=== PATIENT | male | born 1940 | race Asian ===

== ENCOUNTER 2019-04-04 00:18 | Inpatient (IN) | payer OTHER ==
[~2019-04-04] VITALS: Ht 170.2 cm; Wt 69.4 kg
[2019-04-04 00:57] VITALS: BP 120/87
[2019-04-04 01:27] LABS: ABSOLUTE NEUTROPHILS 13.5 thou/uL (1.4-8.2); BASOPHILS 0.2 % (0.0-2.0); EOSINOPHILS 0.4 % (0.0-3.0); HEMATOCRIT 42.9 % (42.0-52.0); HEMOGLOBIN 14.7 gm/dL (14.0-18.0); LYMPHOCYTES 7.3 % (24.0-44.0); MCH 29.8 pg (26.0-34.0); MCHC 34.2 g/dL (28.0-37.0); PLATELET COUNT 341 thou/uL (150-400); POLYS 84.1 % (36.0-66.0); RBC 4.93 mil/uL (4.50-6.00); RDW 15.1 % (10.5-14.5)
[2019-04-04 01:37] LABS: ANION GAP 6 mmol/L (7-16); BUN 10 mg/dL (7-18); CALCIUM 9.9 mg/dL (8.5-10.1); CHLORIDE 95 mmol/L (98-107); CO2 29 mmol/L (21-32); CREATININE 0.9 mg/dL (0.7-1.3); GLUCOSE 130 mg/dL (74-106); POTASSIUM 4.1 mmol/L (3.5-5.1); SODIUM 130 mmol/L (136-145)
[2019-04-04] MEDS ORDERED: AVAPRO75 MG (01:43)
[2019-04-04] MEDS ORDERED: NORVASC10 MG PO (01:43)
[2019-04-04] MEDS ORDERED: HYDROCHLOROTHIA25 M2 PO (01:43)
[2019-04-04 01:47] LABS: ALBUMIN 4.1 g/dL (3.4-5.0); LIPASE 147 U/L (73-393); SGOT 26 U/L (15-37); SGPT 29 U/L (30-65); TOTAL BILIRUBIN 0.5 mg/dL (<0.1-1.0); TOTAL PROTEIN 7.7 g/dL (6.4-8.2); TROPONIN-I <0.06 ng/mL (<0.06)
[2019-04-04 03:30] LABS: URINE BILIRUBIN NEGATIVE (Negative); URINE BLOOD NEGATIVE (Negative); URINE CLARITY CLEAR; URINE COLOR YELLOW; URINE GLUCOSE-RANDOM* NEGATIVE (Negative); URINE KETONES NEGATIVE (Negative); URINE LEUKOCYTES-REFLEX NEGATIVE (Negative); URINE NITRITE-REFLEX NEGATIVE (Negative); URINE PROTEIN (DIPSTICK) NEGATIVE (Negative); URINE UROBILINOGEN 0.2 E.U./dl (0.2-1.0)
[2019-04-04 04:52] VITALS: BP 145/93
[2019-04-04 04:58] VITALS: BP 145/93
[2019-04-04 05:37] VITALS: BP 141/81
--- NOTE | 2019-04-04 06:43 | NUR ---
Assumed care at 1845. Pt resting in bed. AOX4. VSS. On room air. NG tube on right price. Emptied 1100cc in the ED. Denies pain. No skin issues. He has a steady gait.IV R AC with NS @125. Pt refused SCDs. Pt states he feels better and he wants to leave the hospital. No identified needs at the moment. Call light within reach. Will continue to monitor.
[2019-04-04 07:55] VITALS: BP 117/74
--- NOTE | 2019-04-04 08:43 | EKG ---
[place] [address] [facility] [place] [address] ELECTROCARDIOGRAM REPORT Name: JASE ANDREA Room #: 451-P ADM IN M.R.#: [id number] ������������������ Admission: 04/04/19 ������������������ Attend Phys: Marcie Rivas Discharge: ������������������ Date of : 38 Report #: [id number] ����������������������������������������������������������������� [id number] THIS REPORT FOR: //name// [facility] ED Test Date: 2019-04-04 Test Time: 01:28:56 Pat Name: JASE ANDREA Department: Room: [facility] Gender: M Director [employer]: andrew : 1940 Requested By: Gilberto Harp Order Number: [id number] MD: John Modi Measurements Intervals [place] Rate: 106 P: -32 PA: 183 QRS: 70 QRSD: 101 T: 1 QT: 333 QTc: 443 Interpretive Statements Sinus tachycardia RSR' in V1 or V2, right VCD Nonspecific ST segment abnormality No previous ECG available for comparison Electronically Signed On 04-04-2019 8:43:29 CDT by John Modi [email or web address] ��������������������������������������������� <ELECTRONICALLY SIGNED> ���������������������������������������� By: John Modi MD, [facility] ��������������������������������������������� 04/04/19 [id number] [id number] John Modi MD, [facility] /EPI
[2019-04-04] MEDS ORDERED: PEPCID20 MG PO (12:56)
[2019-04-04] MEDS ORDERED: ONDANSETRON HCL4 M2 PO (12:56)
--- NOTE | 2019-04-04 13:41 | NUR ---
Assumed pt care this am, with patent NGT draining cloudy yellow fluid. Pt complained of nausea and a tinge of blood was noted in his NGT after ambulating to the toilet and back. Dr. Rivas was informed and he removed the NGT. Clear liquids is tolerated changed changed to full liquids, will observe tolerance.
--- NOTE | 2019-04-04 14:05 | NUR ---
PT ADMITTED RELATED TO Bowel Obstruction. CM REVIEWED CHART AND SPOKE WITH CARE TEAM. CM MET WITH PT AT BEDSIDE THIS DAY. PT IS A&O X4 BUT PT DOESN'T SPEAK GEORGIAN. CM ROLE INTRODUCED. PT'S SPOUSE AND DTR WERE AT BEDSIDE. PT'S DTR INDICATED THAT IT WAS OK TO HAVE HER PROVIDE HISTORY. SHE INICATED THAT PT IS VISITING FROM [place] AND IS STAYING WITH HER IN AN APARTMENT WITH NO STEPS TO ENTER AND NO STEPS INSIDE. 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 CARE TEAM INDICATED THAT THEY ANTICIPATE PT DISCHARGING HOME THIS DAY.
[2019-04-04 14:27] VITALS: BP 117/74
== END 2019-04-04 16:25 | disposition home or self-care (01) | DRG 392 ==
LOC: ER 00:18 → 4W 03:10 → EROBS 03:10 → 4W 05:03
PROVIDERS: Emergency Medicine; ADMIT Hospitalist
PROC: 0D9670Z Drainage of Stomach with Drainage Device, Via Natural or Artificial Opening (ICD-10-PCS; principal; 2019-04-04)
DX: K52.9 Noninfective gastroenteritis and colitis, unspecified (principal); K29.70 Gastritis, unspecified, without bleeding; K21.9 Gastro-esophageal reflux disease without esophagitis; I10 Essential (primary) hypertension; J44.9 Chronic obstructive pulmonary disease, unspecified; Z79.899 Other long term (current) drug therapy; Z88.8 Allergy status to other drugs, medicaments and biological substances
CPT/HCPCS: 10040